=== PATIENT | female | born 1995 | race Caucasian/White ===

== ENCOUNTER 2018-01-08 13:37 | Emergency (ER) | payer SELFPAY ==
[2018-01-08 14:06] VITALS: BP 120/82; BMI 28.3
[2018-01-08] MEDS ORDERED: NS 1000 ML 1,000 ML IV ONE (14:36)
[2018-01-08] MEDS ORDERED: BENADRYL INJ 50 MG VIAL IVP ONE (14:36)
[2018-01-08] MEDS ORDERED: SOLU-Medrol 125 MG VIAL IVP ONE (14:36)
[2018-01-08] MEDS ORDERED: ADRENALINE CHL INJ IM ONE (14:37)
[2018-01-08] MEDS ORDERED: XYLOCAINE 1 % (PLAIN) ONE (14:57)
--- NOTE | 2018-01-08 15:30 | DR.GENAD ---
HPI - PCP Primary Care Physician: OUT OF TOWN - HPI Comment HPI Comment: WORSE TODAY. NO DRAINAGE. - Complaint/Symptoms Chief Complaint Doctors Comments: ABSCESS AND REDNESS INNER UPPER LEFT ARM. NOTED 2 DAYS AGO. REDNESS EXTENDING. Chief Complaint:: RISEN AREA TO LEFT UNDERARM. VERY BAINFUL Self Treatment fo Chief Complaint: OTC MEDS - Nurses notes reviewed Nurses Notes Review: Yes - Source History Provided: Patient - Mode of Arrival Mode of Arrival: Ambulatory - Timing Onset of Chief Complaint: 01/06/18 Came on: Suddenly - Duration Duration: Constant Duration: Days - Severity Severity: Moderate PMH - PMH Past Medical History: No Past Surgical History: Yes Surgical History: Ortho Surgery Past Surgical History Comment: NECK AND RIGHT ARM - Family History History of Family Medical Conditions: Yes Family Medical History: Diabetes Mellitus, Cancer, MS, Coronary Artery Disease, Heart Failure, Hypertension - Social History Type of Tobacco Use: Cigarettes Alcohol Use: None Do you use any recreational Drugs:: No Lives With: Family Lives Where: Home - infectious screening In the last 2 months have you had wt loss of >10#?: NO Have you had fever, night sweats or hemotysis?: No Have you traveled outside the country in the last 6 months?: No Isolation: Standard ROS - Review of Systems Constitutional: negative: Fever Eyes: No Symptoms Reported ENTM: No Symptoms Reported Respiratoy: No Symptoms Reported Cardiovascular: No Symptoms Reported Gastrointestinal/Abdominal: No Symptoms Reported Genitourinary: No Symptoms Reported Neurological: No Symptoms Reported Musculoskeletal: Left, Shoulder Integumentary: Change in Color, Lumps (ABSCESS), Other (REDNESS ARM.) Hematologic/Lymphatic: No Symptoms Reported Endocrine: No Symptoms Reported All Other Systems: Reviewed and Negative PE - Vital Signs Vitals: Temperature 98.5 F Pulse Rate 116 Respiratory Rate 12 Blood Pressure 120/82 O2 Sat by Pulse Oximetry 97 - General Limitations: No Limitations General Appearance: Alert - Head Head Exam: Normal Inspection - Eyes Eye exam: Normal Appearance - ENT ENT Exam: Normal External Ear Exam External Ear Exam: Normal External Inspection TM/Canal Exam: Bilateral Normal Nose Exam: Normal Nose Exam Mouth Exam: Normal Inspection Throat Exam: Normal Inspection - Neck Neck Exam: Trachea Midline - Chest Chest Inspection: Symmetric Chest Wall Rise - Respiratory Respiratory Exam: Normal Lung Sounds Bilat Respiratory Exam: Bilateral Clear to Auscultation - Cardiovascular Cardiovascular Exam: Regular Rate, Normal Rhythm, Normal Heart Sounds - Abdominal Exam Abdominal Exam: Normal Bowel Sounds, Soft. negative: Tenderness - Extremities Extremities Exam: Tenderness (RT UPPER ARM ABSCESS AND CELLULITIS.) - Back Back Exam: Normal Inspection - Neurologic Neurological Exam: Alert, Oriented X3 - Psychiatric Psychiatric Exam: Normal Affect, Normal Mood - Skin Skin Exam: Erythema MDM - Additional Information Additional Information Obtained From: Family - Differential Diagnosis Differential Diagnosis: ABSCESS, CELLULITIS Course - Treatment Treatment: SEE ORDERS. - Education/Counseling Education/Counseling: Patient, Family, Education Educated On: Treatment, Diagnosis, Needs for Follow Up ROR - Labs Reviewed Laboratory Results Reviewed?: Yes Result Diagrams: 01/08/18 15:42 Laboratory: 01/08/18 15:50 Axilla - Left Gram Stain - Final WBC 9.8 X10^3/uL (3.6-10.0) 01/08/18 15:42 RBC 4.16 X10^6/uL (3.5-5.4) 01/08/18 15:42 Hgb 12.8 g/dL (12.0-16.0) 01/08/18 15:42 Hct 37.2 % (36.0-47.0) 01/08/18 15:42 MCV 89.5 fL (80.0-100.0) 01/08/18 15:42 MCH 30.9 pg (27.0-34.0) 01/08/18 15:42 MCHC 34.5 g/dL (33.0-35.0) 01/08/18 15:42 RDW 13.3 % (11.6-16.5) 01/08/18 15:42 Plt Count 233 X10^3/uL (150.0-450.0) 01/08/18 15:42 MPV 8.7 fL (7.4-11.0) 01/08/18 15:42 Neut % 65.6 % (42.0-75.0) 01/08/18 15:42 Lymph % 25.1 % (21.0-51.0) 01/08/18 15:42 [place] % 6.2 % (0.0-13.0) 01/08/18 15:42 Eos % 2.8 % (0.9-2.9) 01/08/18 15:42 Baso % 0.3 % (0.2-1.0) 01/08/18 15:42 Neut # 6.4 x10^3/uL (2.2-4.8) H 01/08/18 15:42 Lymph # 2.4 X10^3/uL (1.3-2.9) 01/08/18 15:42 [place] # 0.6 x10^3/uL (0.3-0.8) 01/08/18 15:42 Eos # 0.3 x10^3/uL (0.0-0.2) H 01/08/18 15:42 Baso # 0.0 X10^3/uL (0.0-0.1) 01/08/18 15:42 Absolute Nucleated RBC 0.1 /100WBC 01/08/18 15:42 Procedures - Incision and Drainage Blade Size: 11 I & D Procedure: betadine prep, sterile dressing applied, gauze wick placed Progress: I&D DONE AND 2CC PUS DRAINED. IODINE GAUZE APPLIED. - Diagnosis Discharge Problem: Abscess, Cellulitis of left arm - Discharge Plan Disposition: HOME, SELF-CARE Condition: Stable Prescriptions: Ibuprofen [MOTRIN TAB 600 MG *] 600 mg PO TID PRN #30 tab PRN Reason: Pain/Inflammation Sulfamethoxazole-Trimethoprim [BACTRIM DS TAB 800/160 MG *] 1 tab PO Q8H #21 tab - Follow ups/Referrals Follow ups/Referrals: IDALIA CLARKE [STAFF PHYSICIAN] - 2 days NFD,None [Primary Care Provider] - 2 days - Instructions Instructions: Abscess, [id number], Cellulitis, Adult, [id number] Additional Instructions: RETURN TO TO ED IF WORSE..
[2018-01-08 16:00] LABS: BASOPHILS % (AUTO) 0.3 % (0.2-1.0); EOSINOPHILS # (AUTO) 0.3 x10^3/uL (0.0-0.2); EOSINOPHILS % (AUTO) 2.8 % (0.9-2.9); HEMATOCRIT 37.2 % (36.0-47.0); HEMOGLOBIN 12.8 g/dL (12.0-16.0); LYMPHOCYTES # (AUTO) 2.4 X10^3/uL (1.3-2.9); LYMPHOCYTES % (AUTO) 25.1 % (21.0-51.0); MEAN CORPUSCULAR HEMOGLOBIN 30.9 pg (27.0-34.0); MEAN CORPUSCULAR HGB CONC 34.5 g/dL (33.0-35.0); MEAN CORPUSCULAR VOLUME 89.5 fL (80.0-100.0); MEAN PLATELET VOLUME 8.7 fL (7.4-11.0); MONOCYTES # (AUTO) 0.6 x10^3/uL (0.3-0.8); MONOCYTES % (AUTO) 6.2 % (0.0-13.0); NEUTROPHILS # (AUTO) 6.4 x10^3/uL (2.2-4.8); NEUTROPHILS % (AUTO) 65.6 % (42.0-75.0); PLATELET COUNT 233 X10^3/uL (150.0-450.0); RED BLOOD COUNT 4.16 X10^6/uL (3.5-5.4); RED CELL DISTRIBUTION WIDTH 13.3 % (11.6-16.5); WHITE BLOOD COUNT 9.8 X10^3/uL (3.6-10.0)
== END 2018-01-08 16:21 | disposition home or self-care (01) ==
LOC: ER 14:29
PROC: 0X993ZZ Drainage of Left Upper Arm, Percutaneous Approach (ICD-10-PCS; principal; 2018-01-08)
DX: L02.434 Carbuncle of left upper limb (principal); L03.114 Cellulitis of left upper limb; B95.62 Methicillin resistant Staphylococcus aureus infection as the cause of diseases classified elsewhere
CPT/HCPCS: 10060; 36415; 85025; 87040; 87070; 87075; 87077; 87186; 87205; 99282; 99283; J2001